=== PATIENT | female | born 1960 | race Caucasian/White ===

== ENCOUNTER → 2018-07-26 | Outpatient (CLI) | payer OTHER ==
--- NOTE | 2018-07-26 14:03 | PCVCIMAG ---
APPROVED REPORT Study performed: 07/26/2018 13:22:05 Exam: Stress Echocardiogram Indication: HTN, chest pain, strong family history early CAD Patient Location: Echo lab Stress Nurse: Sandy Richard RN Status: routine Ht: 5 ft 3 in HR: 68 bpm BP: 114/76 mmHg Rhythm: NSR Procedure The patient underwent an Exercise Stress Test using the Stephen Protocol. Blood pressure, heart rate, and EKG were monitored. An Echocardiogram was performed by optical technician in four stages in quad fashion. At peak stress, four selected images were obtained and placed side by side with resting images for comparison. Stress Test Details Stress Test: Exercise stress testing was performed using a Stephen protocol. HR Resting HR: 68 bpmMax Heart Rate (APMHR): 165 bpm Max HR Achieved: 166 bpmTarget HR (85% APMHR): 140 bpm % of APMHR: 100 Recovery HR: 103 bpm HR response to stress: Normal HR response to stress BP Resting BP: 114/76 mmHg Max BP: 164/70 mmHg Recovery BP: 146/70 mmHg BP response to stress: Normal blood pressure response to stress. ECG Resting ECG: Sinus Rhythm Stress ECG: Sinus Rhythm ST Change: Normal Arrhythmia: PACs Recovery ECG: Sinus Rhythm Recovery ST Change: Normal Recovery Arrhythmia: PACs Clinical Reason for Termination: Maximal effort Stress Symptoms: Dyspnea Exercise duration: 9 min sec Highest Stage Achieved: Stage 3: 3.4 mph at 14% grade. Exercise capacity: 10.1 METs Overall Exercise Capacity for Age: Normal Scale: Sedentary Angina Score: None Pre-Stress Echo The resting Echocardiogram showed normal left ventricular contractility with an estimated Ejection Fraction of about >55%. Normal wall motion in all segments on baseline images. Post-Stress Echo The stress Echocardiogram showed normal left ventricular contractility with an estimated Ejection Fraction of about 60-65%. Normal augmentation of wall motion in all segments on post stress images. Clinical No clinical or ECG evidence for ischemia. Conclusion Clinical Response: Non-ischemic Exercise Capacity: Average Stress ECG Response: Non-ischemic Stress Echo Images: Non-ischemic Mild mitral regurgitation with anterior leaflet flattening. The left ventricle is normal in size and wall thickness in both the rest and stress images. Other Information Study Quality: Adequate <Conclusion> Mild mitral regurgitation with anterior leaflet flattening. The left ventricle is normal in size and wall thickness in both the rest and stress images.
== END | disposition home or self-care (01) ==
LOC: PCVCIMAG 13:19
PROVIDERS: ATTEND Internal Medicine Cardiovascular Disease
DX: I10 Essential (primary) hypertension (principal); I49.3 Ventricular premature depolarization; E78.00 Pure hypercholesterolemia, unspecified; E78.5 Hyperlipidemia, unspecified; Z82.49 Family history of ischemic heart disease and other diseases of the circulatory system
CPT/HCPCS: 93325; 93351